=== PATIENT | female | born 1970 ===

== ENCOUNTER 2020-03-16 23:08 | Emergency (ER) | payer BC, OTHER ==
[~2020-03-16] VITALS: Ht 149.9 cm; Wt 66.3 kg
[2020-03-16 23:09] VITALS: BP 124/76
[2020-03-16] MEDS ORDERED: LIDOCAINE-MPF 1%, 5ML ONE (23:59)
[2020-03-17] MEDS ORDERED: LIDOCAINE-MPF 1%, 5ML INFIL ONE
[2020-03-17] MEDS ORDERED: DIPH,PERTUSS(ACELL),TET VAC/PF 0.5 ML IM-VACC ONE ×2 (00:21)
[2020-03-17] MEDS ORDERED: AMOXICILLIN/CLAV 875-125MG TABLET PO STA (00:36)
[2020-03-17] MEDS ORDERED: AMOXICILLIN/CLAV 875-125MG TABLET ONE (00:46)
--- NOTE | 2020-03-17 00:58 | NUR ---
NO S/S OF ABX RXN NOTED. DC EDUCATION PROVIDED, PT DEMONSTRATES UNDERSTANDING. PT AMBULATED STEADILY TO DC WITH RN
== END 2020-03-17 01:09 | disposition home or self-care (01) ==
LOC: ED 03-17 01:07
DX: S00.37XA Other superficial bite of nose, initial encounter (principal); W54.0XXA Bitten by dog, initial encounter; Y93.89 Activity, other specified; Y92.098 Other place in other non-institutional residence as the place of occurrence of the external cause; Y99.8 Other external cause status
CPT/HCPCS: 12051; 90471; 90715; 99284